=== PATIENT | male | born 1955 | race Caucasian/White ===

== ENCOUNTER 2025-06-08 07:28 | Outpatient (OUT) | payer MEDICARE, OTHER, SELFPAY ==
--- OUTSIDE RECORDS SUMMARY | 2025-06-06 19:56 | XMS_ITS | Continuity of Care Document ---
Author Organization [facility] Address [address] [place] [address] Phone Care Team Providers Care Bar Supervisor Name Role Phone Marco Bello MD Primary Care Provider Rayshawn Milton II, MD Attending Provider [phone] Care Teams Patient Care Team Team Status: Active Member Role/Relationship Status Dates Marco Bello MD Primary Care Provider Active Patient Care Team Team Status: Inactive Member Role/Relationship Status Dates Marco Bello MD Primary Care Provider Active Start: June 06, 2025 End: June 06, 2025Robviet Milton II, MDAttending ProviderActiveStart: June 06, 2025 End: June 06, 2025 Allergies, Adverse Reactions, Alerts Allergen Type Severity Reaction Last Updated Verified Status No Known Allergies Allergy Unknown May 06, 2024 8:48amYesActive Social History Smoking Status Status Start Date End Date Date of Observa tion Never smoked tobacco (finding) November 08, 2023 9:50am Observation Status Observation Response Date of Response Legal Sex Male (finding) Sex Assigned At BirthMaleDecember 1954 Family History Relationship Condition Age at Onset Recorded Date/T mary father Unknown HydrocephalusUnknownFamily history of myocardial infarctionUnknownmotherDeceased UnknownDementiaUnknown Problems Active Problems Problem Diagnosis/Recorded Date Onset Date Stat us Other buttermilk drier operator (current) drug therapy September 15, 2023 12:02pm Unknown Active Age-related osteoporosis wit hout current pathological fracture September 15, 2023 11:59am Unknown Ac tive Bilateral primary osteoarthritis of hip September 15, 2023 11:58am Unknown Active Cough May 06, 2024 9:11am Unknown Ac tive S/P total left hip arthroplasty November 23, 2023 3:36p m Unknown Active Arthritis of left hip September 15, 2023 7:54am Unkno wn Active Arthritis of right hip September 15, 2023 7:57am Unkn own Active Aftercare following hip join t replacement surgery November 23, 2023 3:36pm Unknown Active Strep throat May 06, 2024 9:11am Unknown Ac tive Hypertension May 06, 2024 8:47am Unknown Ac tive Medications Medication Status Dose Units Route Directions Qty Days Refills S tart Date Stop Date End Date Reason(s) Instructions Adherence Amoxicillin 500 mg tablet Discontinued 2000 MG PO once 4 1 3 June 05, 2024 12:00am December 25, 2024 7:05am1 hour prior to procedureAmoxicillin 500 mg tablet Lodcoxavevap3868DVLEsrvd305Xpqo 2024 7:05amJune 2024 7:42am1 hour prior to procedureAmoxicillin 500 mg edgetkPnijjs1681DVAFzaty829Tixd 2024 7:41am1 hour prior to procedureUnknownAcetaminophen (8 Hour Pain Reliever) 650 mg tablet extended lfxoinxYdtyervqtoun349ZRWPLitbp 8 hours as needed for pain October 25, 2023 11:00pmApril 2023 1:25pmMethylprednisolone (Medrol (Lio)) 4 mg tablets,dose jxmqAfktciowppfa3MPZNnu jihejgtv92Xcrdd 2023 11:00pmMay 2023 8:89goVcfjhjsdjggboqe-Eaomaiusu-Gl (Bromfed Dm) 2-30-10 mg/5 mL syrup Kzllly45HDBXLLVFH 4-6 HOURS as needed for cold obzdtbyt0263Kzwkfhu 2023 11:00pmUnknownAmoxicillin 875 mg zjtzvrVuesvo014WEVUUbzpb jniqp87468Fwpfhay 2023 11:00pmUnknownBenazepril-Hydrochlorothiazide 20-12.5 mg tabletActive1 TABPOTwice dailyFebruary 2023 12:00amUnknownCelecoxib 200 mg capsule DiscontinuedMGPODailyFebruary 2023 12:00amApril 2023 8:38amMelatonin 5 mg qufmdbaOfldpc3FCYSCwwaopz as needed for sleepFebruary 2023 12:00am UnknownErgocalciferol (Vitamin D2) 1,250 mcg (50,000 unit) capsuleDiscontinued 9637RUARDH9K2284Iscqhhff 2023 12:00amMay 2023 12:17pmSennosides- Docusate Sodium (Senokot-S) 8.6-50 mg jfvdgqOcpftuwrumoq2BDGHLgartj76022Sfzvi 2023 11:00pmMay 2023 10:48amDO NOT RECONCILE UNTIL DOS: 11/08/2023 MED TO BEDPolyethylene Glycol 3350 (Miralax) 17 gram/dose schxjoIwkcpokdhric50RUGU lmopk199Hlfuq 2023 11:00pmMay 2023 12:17pm1 packed mixed with 8 ounces of fluid. DO NOT RECONCILE UNTIL DOS: 11/08/2023 MED TO BEDCelecoxib 200 mg hwienwyZxvpvsucmhrj836TKOYJwpxk zmedv81509Junma 2023 11:00pmApril 2023 2:46pmDO NOT RECONCILE UNTIL DOS: 11/08/2023 MED TO BEDCefadroxil 500 mg capsule Hqwwpyzjopqa598XXAOF82Y9563Vipby 2023 11:00pmMay 2023 12:17pmDO NOT RECONCILE UNTIL DOS: 11/08/2023 MED TO BEDAcetaminophen 500 mg tabletDiscontinued 1856DJHJQ2D418611Nymlc 2023 11:00pmOctober 2023 8:48amDO NOT RECONCILE UNTIL DOS: 11/08/2023 MED TO BEDTramadol 50 mg wnknopOzidzonaixgw45EEKM Q6H as needed for Dlwu94902Khuak 2023 11:00pmMay 2023 10:48amPrimary osteoarthritis of both hips Bilateral primary osteoarthritis of hipDO NOT RECONCILE UNTIL DOS: 11/08/2023 MED TO BEDOxycodone 5 mg uqjzveSbwedetefses0PYRXM9W as needed for Iyvj2137Uowsl 2023Ma2023 10:48amPrimary osteoarthritis of both hips Bilateral primary osteoarthritis of hipDO NOT RECONCILE UNTIL DOS: 11/08/2023 MED TO BEDOndansetron Hcl 4 mg enmdvbWtujxzogbjtf9AFXZM9F as needed for Mmxebq13 October 26, 2023 11:00pmMay 2023 12:17pmDO NOT RECONCILE UNTIL DOS: 11/08/2023 MED TO BEDPantoprazole (Protonix) 20 mg tablet,delayed release (DR/EC) Qbqmattaxrma31BHEIxdmit94429Szhrz 2023 11:00pmMay 2023 12:17pmDO NOT RECONCILE UNTIL DOS: 11/08/2023 MED TO BEDAspirin 81 mg tablet,delayed release (DR/EC)Jdglmjnvuher13KZLFYuprp ptrga71427Yziaj 2023 11:00pmMay 2023 10:48amDO NOT RECONCILE UNTIL DOS: 11/08/2023 MED TO BEDPrednisone 10 mg tablet Iiczdtluwmom35OOFDjxpwa27215Rspym 2023 11:00pmMay 2023 12:17pmDO NOT RECONCILE UNTIL DOS: 11/08/2023. MED TO BEDAmoxicillin 500 mg tabletDiscontinued 2847VPNTfnfy345Tkt 2023 11:00pmOctober 2023 8:48am1 hour prior to procedure Immunizations Immunization Event Date Not Given Reason Dose Number Stamping Machine Operator Lot Number Reason(s) Given Vaccine Information Statement (VIS) Detail Administration Location COVID-19 mRNA-1273 (Moderna) November 07, 2020 COVID-19 mRNA-1273 (Moderna)December 10, 2020 Medical Equipment Device Date Implanted Device Details Acetabular shell November 08, 2023 RISHI: [id number] Issuing Agency: [facility] Device Id: [id number] Expiration Date: 2032-12-22 Lot Number: [id number] femoral head prosthesisApril 2023UDI: [id number] Issuing Agency: [facility] Device Id: [id number] Expiration Date: 2033-06-29 Lot Number: [id number] hip femur prosthesis, modularApril 2023UDI: [id number] Issuing Agency: [facility] Device Id: [id number] Expiration Date: 2027-10-28 Lot Number: [id number]-[id number] polyethylene acetabular linerApril 2023 RISHI: [id number] Issuing Agency: [facility] Device Id: [id number] Expiration Date: 2028-07-03 Lot Number: [id number] Advance Directives Advance Directive Response Recorded Date/ Time Advance Directives No May 10, 2021 8:06am Insurance Providers Guarantor Hao Louis , Sr Address [address] [facility] [address]Xgmsjor Info.Home Phone: Payer Group Member ID Coverage Type Subscriber Relationship to Subscriber Effective Date Expiration Date Medicare [id number] J Lawrence , Sr Id: [id number] [facility] [address] Home Phone: SelfUnited Iraqi Id: Plan [id number] J Lawrence , Sr Id: [id number] [facility] [address] Home Phone: Self Encounters Encounter Location(s) Arrival/Admit Date Discharge/Departure Date Discharge/Departure Disposition Provider(s) Departed Clinical -Gildardo Jolley June 06, 2025 11:11am June 06, 2025 11:12am Discharged to home care or self care (routine discharge) Davis Allen MD
--- NOTE | 2025-06-08 | XR_ITS ---
The [address] [address] Patient Name: AMINA ROJO MRN: [id number] date: 1955 Sex: M Assigned Patient Location: [facility] Current Patient Location: [facility] Accession/Order Number: [id number] Exam Date: 06/08/2025 09:35 Report Date: 06/08/2025 10:35 At the request of: EUSEBIO FIGUEREDO MD Procedure: XR shoulder LT min 2V LEFT SHOULDER - 4 views CLINICAL HISTORY: M25.512 left shoulder pain and decreased range of motion. No injury. COMPARISON: None AP, Y, axillary and Grashey views were obtained. There is osteopenia. There is no evidence of fracture or dislocation. There is minor hypertrophy at the inferior glenohumeral and acromioclavicular joints. There are no significant soft tissue abnormalities. XR/XR shoulder LT min 2V IMPRESSION: OSTEOPENIA AND MINOR DEGENERATIVE CHANGE. NO ACUTE BONY FINDINGS. Impression dictated by: Ileana Humphreys M.D. 06/08/2025 10:35 AM Dictation Location: [place] [address] Electronically authenticated by: [id number] Y Date: 06/08/2025 10:35
--- OUTSIDE RECORDS SUMMARY | 2025-06-08 07:31 | XMS_ITS | Clinical Summary ---
Author Organization [facility] Address [address] [place] [address] Care Team Providers Care Formula Bottler Name Role Phone Marco Bello MD Primary Care Provider [phone] Allergies No known active allergies Medications MedicationSigDispense QuantityRefillsLast FilledStart DateEnd DateStatus DIOVAN HCT 80-12.5 mg per tablet Take 1 tablet by mouth once daily.05/03/2015ctive aspirin, enteric coated (ASPIRIN, ENTERIC COATED) 81 mg EC tablet Take 81 mg by mouth once daily.Active meloxicam (MOBIC) 15 mg tablet Take 1 tablet by mouth once daily. 30 tablet 04/16/2017Active Benazepril-hydroCHLOROthiazide 20-12.5 mg per tablet Take 2 tablets by mouth once daily.Active Active Problems ProblemNoted DateDiagnosed DateColon polyp05/22/2015Family history of colonic oeqwqa4605/22/2015Diverticulosis of large intestine without baqqafwiji92/28/2015 Encounters DateTypeDepartmentCare EygiCpmxwguijum84/16/2025Results Follow-Up Ambulatory Surgery [address] [place] [address] Dirk Barajas MD 05/09/2025 9:17 AM EDTAnesthesia Event Ambulatory Surgery [address] [place] [address] Silvina Odonnell APRN.ANTENNA MACHINE OPERATOR Kathleen Marin APRN.ANTENNA MACHINE OPERATOR 05/09/2025 8:24 AM EDT - 05/09/2025 11:59 PM EDTHospital Encounter Ambulatory Surgery [address] [place] [address] Dirk Barajas MD Mace, Hannah M, RN McLaughlin, Vivian, APRN.ANTENNA MACHINE OPERATOR History of colonic polyps [Z86.0100] Discharge Disposition: Home05/09/20250703Wsxned80/14/2025GI Preprocedure Call Ambulatory Surgery [address] [place] [address] Dirk Barajas MD 03/13/2025Telephone Gastroenterology [address] [place] [address] Dirk Barajas MD Orders; Appointmentfrom Last 3 Months Social History Tobacco UseTypesPacks/DayYears UsedDateSmoking Tobacco: NeverAlcohol UseStandard Drinks/WeekCommentsYes3 (1 standard drink = 0.6 oz pure alcohol)AUDIT-CAnswer Date RecordedQ1: How often do you have a drink containing alcohol?2-3 times a week05/15/2020Q2: How many drinks containing alcohol do you have on a typical day when you are drinking?3 or Frequency of Binge DrinkingNot on file 05/15/2020Area Deprivation IndexAnswerDate RecordedNational Score (1-100), lower number is lower riskNot on file06/30/2020State Score (1-10), lower number is lower riskNot on file06/30/2020Data from: https://www.neighborhoodatlas.medicine.[facility].edu/. Last address used for calculationNot on file06/30/2020Sex and Gender InformationValueDate RecordedSex Assigned at BirthNot on fileLegal NjzYaze64/02/2012 8:39 AM ESTGender Identity Not on fileSexual OrientationNot on file Last Filed Vital Signs Vital SignReadingTime TakenCommentsBlood Iepazzow916/7710 9:55 AM EDT Lxcta158805/09/2025 9:55 AM HCRHbuqdvyltzd47.8 ??C (98.2 ??F)05/15/2020 8:47 AM EDTRespiratory Smfm3522 9:55 AM EDTOxygen Nqxudunpgu70%05/09/2025 9:55 AM EDTInhaled Oxygen Concentration--Hhhwbj15.7 kg (200 lb)05/09/2025 8:52 AM EDT Dysfws131.9 cm (6')05/09/2025 8:52 AM EDTBody Mass Index27.121 8:52 AM EDT Plan of Treatment Health MaintenanceDue DateLast DoneCommentsAnxiety Ufrajdjra45/07/1973Depression Fqbfwkdla79/07/1973Hepatitis C Nigltzoeu36/07/1973DTaP,Tdap,Td Vaccine (1 - Tdap)1974CT Hixbvdxjvwds24/07/2000Cologuard (FIT-DNA)2000Fecal Occult Blood07/01/20007247Wxdlverwrmchi79/07/2000Shingrix Vaccine (2 of 3)06/25/2014 04/30/2014Medicare Annual Wellness Visit06/25/2020Advance Directive Discussion 5Covid-19 Vaccine ( - season)2025Influenza Vaccine (#1) 502/, 05/20/2022, 1Diabetes Ghifzkjoj77/22/2028 03/16/2025, 03/16/2025, 05/03/2024, Additional history existsLipid Screening , 05/03/2024, 05/26/2023, Additional history exists Svcqtnmdxdq49, 05/15/2020, 05/22/2015, Additional history existsColorectal Cancer Gmupwuztm70/15/2030RSV Vaccine (1 - 1-dose 75+ series) 2030Pneumococcal Vaccine: 50+Ghksgfbmx52/28/2024 Procedures Procedure NamePriorityDate/TimeAssociated DiagnosisCommentsSURGICAL PATHOLOGY Zbwccyu2705/09/2025 9:27 AM EDT History of colonic polyps Family history of colonic polyps COLONOSCOPY (THERAPEUTIC)Fgwmymg0605/09/2025 9:11 AM EDT PT ED DIGESTIVE GQKVJIQ4004/09/2025 PT ED PATIENT TGKTFGMYHGN69/ PT ED DIGESTIVE CZMYRZZ2104/09/2025 from Last 3 Months Results * SURGICAL PATHOLOGY (05/09/2025 9:27 AM EDT)ComponentValueRef RangeTest Method Analysis TimePerformed AtPathologist SignatureCase ReportSurgical Pathology Report ? Case: [id number] ? Authorizing Provider: ??Dirk Barajas MD ? Collected: ? 05/09/2025 09:27 AM? Ordering Location: ? Ambulatory Surgery ? Received: ?05/09/2025 07:19PM ? Pathologist: ? Nixon Burks MD ? Specimens: ?? A) - Colon, Transverse, Polyp ? B) - Rectum, Polyp ? 05/10/2025 11:01 AM [facility]. Transverse colon, polypectomy: - Fragments of tubular adenoma. B. Rectum, polypectomy: - Hyperplastic polyp.05/10/2025 11:01 AM [facility] at 1101 EDTGross DescriptionA. Colon, Transverse, Polyp Received in formalin are multiple pieces of clark, soft tissue aggregating to 1.4 x 0.2 x 0.2 cm. Totally submitted in one cassette. B. Rectum, Polyp Received in formalin is one piece of clark, soft tissue measuring 0.3 x 0.3 x 0.1 cm. Totally submitted in one cassette. SS May 09, 2025 10:20 PM Gross examination performed at [facility], [address] [place] [address] 05/10/2025 11:[address] [facility] LABClinical HistoryAssociated Diagnoses: Z86.0100 - History of colonic polyps Z83.719 - Family history of colonic polyps 05/10/2025 11:[address] [facility] LABPerforming LabDiagnostic interpretation performed at: [facility], [address] [place] [address] CLIA# [id number] Chemical Analyst: Zayda Wheeler MD 05/10/2025 11:[address] [facility] LABDisclaimerLaboratory Developed Test (LDT) Disclaimer: Performance characteristics of immunohistochemical, immunofluorescent, and chromogenic in-situ hybridization tests have been determined by the performing laboratory within the [facility] Department of Pathology and Laboratory Medicine ([facility], [facility], [facility], [facility], [facility], [facility], or [facility]) in a manner consistent with CLIA requirements. One or more of these tests may not have been cleared or approved by the FDA. The [facility] Department of Pathology and Laboratory Medicineis regulated under CLIA as qualified to perform high-complexity testing. These tests are used for clinical purposes. These should not be regarded as investigational or for research. Positive and negative controls stain appropriately.05/10/2025 11:01 AM EDT [facility] LABSpecimen (Source)Anatomical Location / Laterality Collection Method / VolumeCollection TimeReceived TimeTissuePOLYP OF TRANSVERSE COLON / Spbgtve6405/09/2025 9:27 AM EDT1 7:19 PM EDTTissue specimen (specimen)RECTAL POLYP / Rxxsmli9205/09/2025 9:36 AM EDT1 7:19 PM EDT Narrative Authorizing ProviderResult TypeResult StatusDirk Barajas MDSURGICAL PATHOLOGY Final ResultPerforming OrganizationAddressCity/State/ZIP CodePhone Number [facility] [address] [place] [address], * COLONOSCOPY (THERAPEUTIC) (05/09/2025 9:11 AM EDT)Anatomical RegionLaterality ModalityOtherSpecimen (Source)Anatomical Location / LateralityCollection Method / VolumeCollection TimeReceived Time05/09/2025 9:11 AM EDT Narrative 05/09/2025 9:43 AM EDT [facility] Gastroenterology Gastrointestinal Endoscopy Patient Name: Amina Rojo Procedure Date: 05/09/2025 9:11 AM Date of : 1955 Admit Type: Outpatient Age: 69 Room: [place] [address] Gender: Male Note Status: Finalized Attending MD: Dirk Barajas MD, [id number] Procedure: ? Colonoscopy Indications: ? Screening for colorectal malignant neoplasm Providers: ? Dirk Braajas MD Patient Profile: ? This is a 69 year old male. Refer to note in ? patient chart for documentation of history and ? physical. Last Colonoscopy: 10 years ago. Referring Physician: ?? Dirk Barajas MD (Referring MD) Medicines: ? Monitored Anesthesia Care Complications: ? No immediate complications. Requesting Provider: ?? Procedure: ? Pre-Anesthesia Assessment: ? - Prior to the procedure, a History and Physical ? was performed, and patient medications and ? allergies were reviewed. The patient is competent. ? The risks and benefits of the procedure and the ? sedation options and risks were discussed with the ? patient. All questions were answered and informed ? consent was obtained. Patient identification and ? proposed procedure were verified by the physician, ? the nurse and the lead press operator in the procedure ? room. Mental Status Examination: alert and ? oriented. Airway Examination: normal oropharyngeal ? airway and neck mobility. Respiratory Examination: ? clear to auscultation. CV Examination: normal. ? Prophylactic Antibiotics: The patient does not ? require prophylactic antibiotics. Prior ? Anticoagulants: The patient has taken no ? anticoagulant or antiplatelet agents. ASA Grade ? Assessment: II - A patient with mild systemic ? disease. After reviewing the risks and benefits, ? the patient was deemed in satisfactory condition to ? undergo the procedure. The anesthesia plan was to ? use monitored anesthesia care (MAC). Immediately ? prior to administration of medications, the patient ? was re-assessed for adequacy to receive sedatives. ? The heart rate, respiratory rate, oxygen ? saturations, blood pressure, adequacy of pulmonary ? ventilation, and response to care were monitored ? throughout the procedure. The physical status of ? the patient was re-assessed after the procedure. ? After I obtained informed consent, the scope was ? passed under direct vision. Throughout the ? procedure, the patient's blood pressure, pulse, and ? oxygen saturations were monitored continuously. The ? Colonoscope was introduced through the anus and ? advanced to the terminal ileum, with identification ? of the appendiceal orifice and IC valve. I was ? present and participated during the entire ? procedure, including non-ohara portions, and during ? the administration and monitoring of Moderate ? Sedation. The colonoscopy was performed without ? difficulty. The patient tolerated the procedure ? well. The quality of the bowel preparation was ? good. The terminal ileum, ileocecal valve, ? appendiceal orifice, and rectum were photographed. Scope Withdrawal Time: 0 hours 8 minutes 2 seconds Moderate Sedation: ? MAC anesthesia was administered by the anesthesia ? team. Findings: ? The perianal and digital rectal examinations were normal. Pertinent ? negatives include normal sphincter tone. ? Non-bleeding internal hemorrhoids were found during retroflexion. The ? hemorrhoids were moderate, medium-sized and Grade I (internal ? hemorrhoids that do not prolapse). ? A 2 mm polyp was found in the rectum. The polyp was sessile. The ? polyp was removed with a cold biopsy forceps. Resection and retrieval ? were complete. ? Multiple medium-mouthed and small-mouthed diverticula were found in ? the sigmoid colon. There was no evidence of diverticular bleeding. ? A 12 mm polyp was found in the transverse colon. The polyp was ? sessile. The polyp was removed with a cold snare. Resection and ? retrieval were complete. ? The exam was otherwise normal throughout the examined colon. ? There is no endoscopic evidence of bleeding, erythema, inflammation, ? mass, stenosis, stricture or ulcerations in the entire colon. ? The terminal ileum appeared normal. Impression: ?- Non-bleeding internal hemorrhoids. ? - One 2 mm polyp in the rectum, removed with a cold ? biopsy forceps. Resected and retrieved. ? - Mild diverticulosis in the sigmoid colon. There ? was no evidence of diverticular bleeding. ? - One 12 mm polyp in the transverse colon, removed ? with a cold snare. Resected and retrieved. ? - The examined portion of the ileum was normal. Recommendation: ?- Patient has a contact number available for ? emergencies. The signs and symptoms of potential ? delayed complications were discussed with the ? patient. Return to normal activities tomorrow. ? Written discharge instructions were provided to the ? patient. ? - Resume previous diet. ? - Continue present medications. ? - Await pathology results. ? - Repeat colonoscopy in 5 years for surveillance. ? - Return to referring physician PRN. ? - Use Citrucel one tablespoon PO daily indefinitely. ? - Discharge patient to home (ambulatory). Procedure Code(s): ? --- Professional --- ? 73595, Colonoscopy, flexible; with removal of ? tumor(s), polyp(s), or other lesion(s) by snare ? technique ? 69330, 59, Colonoscopy, flexible; with biopsy, ? single or multiple Diagnosis Code(s): ? --- Professional --- ? Z12.11, Encounter for screening for malignant ? neoplasm of colon ? K64.0, First degree hemorrhoids ? D12.8, Benign neoplasm of rectum ? D12.3, Benign neoplasm of transverse colon (hepatic ? flexure or splenic flexure) ? K57.30, Diverticulosis of large intestine without ? perforation or abscess without bleeding CPT copyright 2020 [employer]. All rights reserved. The codes documented in this report are preliminary and upon armored truck driver review may be revised to meet current compliance requirements. Scope In: 9:21:30 AM Scope Out: 9:37:05 AM MD Dirk Melvin MD 05/09/2025 9:40:06 AM This report has been signed electronically by Dirk Barajas MD Number of Addenda: 0 Note Initiated On: 05/09/2025 9:11 AM Estimated Blood Loss: ? Estimated blood loss: none. Authorizing ProviderResult TypeResult Anne Barajas MDDIGESTIVE DISEASE Final Result * PT ED PATIENT INFORMATION (04/09/2025)Specimen (Source)Anatomical Location / LateralityCollection Method / VolumeCollection TimeReceived Time04/09/2025 Narrative [facility] - 05/10/2025 Provider SUNITA your patient AMINA ROJO has not started their Osiel program, time has . Osiel program: PATIENT SAFETY INSTRUCTIONS FOR HEALTHCARE SETTINGS Authorizing ProviderResult TypeResult Anne Barajas MDEMMIFinal Result Performing OrganizationAddressCity/State/ZIP CodePhone Number [facility] * PT ED DIGESTIVE DISEASE (04/09/2025) Only the most recent of2 resultswithin the time period is included. Specimen (Source)Anatomical Location / LateralityCollection Method / Volume Collection TimeReceived Time04/09/2025 Narrative [facility] - 05/10/2025 Provider SUNITA your patient AMINA ROJO has not started their Osiel program, time has . Osiel program: COLONOSCOPY: WHY GET ONE? Authorizing ProviderResult TypeResult StatusEdalbertina Barajas MDEMMIFinal Result Performing OrganizationAddressCity/State/ZIP CodePhone Number [facility] from Last 3 Months Insurance Care Teams Team MemberRelationshipSpecialtyStart [place] [address] [place] [phone] PCP - GeneralFamily Powaqiep15/26/15
--- OUTSIDE RECORDS SUMMARY | 2025-06-08 07:31 | XMS_ITS | Encounter Summary ---
Author Organization [facility] Address [address] [place] [address] Phone Care Team Providers Care Shot Hole Driller Name Role Phone Marco Bello MD Primary Care Provider Marco Bello MD Unavailable [phone] Encounter Details DateTypeDepartmentCare Team (Latest Contact Info)Uqgiareyxtf02/04/2025Patient Risk Score [facility] [address] [facility] [address] [place] [address] Social History Tobacco UseTypesPacks/DayYears UsedDateSmoking Tobacco: NeverSmokeless Tobacco: NeverAlcohol UseStandard Drinks/WeekCommentsNot Currently1 (1 standard drink = 0.6 oz pure alcohol)PHQ-2AnswerDate RecordedPatient Health Questionnaire-2 Score Sex and Gender InformationValueDate RecordedSex Assigned at BirthNot on fileLegal MorNvdm91/26/2022 8:39 PM ESTGender IdentityNot on fileSexual OrientationNot on filedocumented as of this encounter Plan of Treatment DateTypeDepartmentCare Team (Latest Contact Info)Hrzsnoaombz13/06/2026 10:15 AM EDTOffice Visit [facility] [address] [place] [phone] [place] [address] [place], [place] [phone] documented as of this encounter Visit Diagnoses Not on filedocumented in this encounter Additional Health Concerns AssessmentNoted TimeA fall risk assessment has been completed for the patient 01/25/2025 9:21 AM EDTdocumented as of this encounter Care Teams Team MemberRelationshipSpecialtyStart [place] [address] [place] [address] PCP - [facility]04/08/16 [place] [address] [place] [address] PCP - [facility] Attributed Provider10/25/23documented as of this encounter
--- OUTSIDE RECORDS SUMMARY | 2025-06-08 07:31 | XMS_ITS | Patient Health Record ---
Author Organization [facility] Urgent Care - [facility] Address [address] [place] [address] Care Team Providers Care Gear Machinist Name Role Phone Douglas Richardson [phone] Reason For Referral No Information Medications Medication SIG (Take, Route, Frequency, Duration) Notes Start Date End Date Status valsartan Active Plan Of Treatment No Information Insurance Providers Payer Name Payer Address Payer Phone Subscriber Number Group Number Insured Name Patient Relationship to Insured Coverage Start Date Coverage End Date [employer] [address] [place] [address] [id number] Hao Louis Self - patient is the insured Medications Administered Medication Instructions Date of Administration Dosage Notes Solumedrol 125 mg(Methylprednisolone Sod ium) 08/11/2019125 mgVerified by [facility] (General) History Medical History History ICD Code High Blood Pressure
--- OUTSIDE RECORDS SUMMARY | 2025-06-08 07:31 | XMS_ITS | Clinical Summary ---
Author Organization [facility] Address [address] [place] [address] Phone Care Team Providers Care Battery Container Tester Name Role Phone Marco Bello MD Primary Care Provider [phone] Marco Bello MD Unavailable Allergies Active AllergyReactionsCriticalityNoted DateComments Valsartan-QozuvugtiopwsxanejuOcbhtdq64/22/2024 Medications MedicationSigDispense QuantityRefillsLast FilledStart DateEnd DateStatus cyanocobalamin (Vitamin B-12) 1,000 mcg tablet Take 1 tablet (1,000 mcg) by mouth once daily.Active melatonin 5 mg capsule 4Active acetaminophen (Tylenol) 500 mg tablet Q8H4Active albuterol (Proventil HFA) 90 mcg/actuation inhaler Indications:Upper respiratory tract infection, unspecified typeInhale 2 puffs every 4 hours if needed for wheezing or shortness of breath. 18 g 4Active amoxicillin (Amoxil) 500 mg tablet TAKE 4 TABLETS BY MOUTH 1 HOUR BEFORE PROCEDURE FOR 1 DAY5Active cephalexin (Keflex) 500 mg capsule TAKE FOUR CAPSULES BY MOUTH ONE HOUR BEFORE JTWXLAONWYD70/09/2025Active valACYclovir (Valtrex) 1 gram tablet 5Active benazepriL-hydrochlorothiazide (Lotensin HCT) 20-12.5 mg tablet Indications:Primary hypertensionTake 2 tablets by mouth once daily. 180 tablet 6Active amLODIPine (Norvasc) 2.5 mg tablet Indications:Primary hypertensionTake 1 tablet (2.5 mg) by mouth once daily. 90 tablet 5Active Active Problems ProblemNoted DateDiagnosed FhhfGdgp88/15/2024Overweight with body mass index (BMI) of 28 to 28.9 in adult4Age-related osteoporosis without current pathological ozgsmwez66/28/2024rthritis of left hip09/22/2023rthritis of right hip09/22/2023ilateral primary osteoarthritis of hip09/22/2023reop examination 4Routine general medical examination at health care /28/2024 Assessment & Plan (01/25/2025 10:40 AM EDT): Orders: 1 Year Follow Up In Primary Care - Wellness Exam; Future B12 myrsmerfgm52/20/2024Hip pain, left09/14/20238509Gbyycqycexsty25/20/2024 Assessment & Plan (01/25/2025 10:40 AM EDT): Orders: Hemoglobin A1C; Future Yupzrdvstrjn61/20/2024 Assessment & Plan (01/25/2025 10:40 AM EDT): Orders: Lipid Panel; Future Comprehensive Metabolic Panel; Future benazepriL-hydrochlorothiazide (Lotensin HCT) 20-12.5 mg tablet; Take 2 tablets by mouth once daily. amLODIPine (Norvasc) 2.5 mg tablet; Take 1 tablet (2.5 mg) by mouth once daily. Assessment & Plan (05/25/2024 12:29 PM EDT): Orders: benazepriL-hydrochlorothiazide (Lotensin HCT) 20-12.5 mg tablet; Take 2 tablets by mouth once daily. amLODIPine (Norvasc) 2.5 mg tablet; Take 1 tablet (2.5 mg) by mouth once daily. Prostate etjjmu1509/14/2023asal cell carcinoma of skin of nose06/03/2022quamous cell carcinoma of skin of other parts of face06/03/2022olon polyp05/22/2015 Diverticulosis of large intestine without xfrmjhhykz61/28/2015Family history of colonic mfvdqn3905/22/2015 Encounters DateTypeDepartmentCare NlfqFbwypdlthah46/04/2025Patient Risk Score [facility] [address] [place] [address] 04/28/2025Patient Risk Score [facility] [address] [place] [address] 03/28/2025Patient Risk Score [facility] [address] [place] [address] 03/22/2025Results Follow-Up [facility] [address] [place] [phone] Marco Bello MD Lipid Panel, Hemoglobin A1C, Comprehensive Metabolic Panel, Additional followed- up results: 3from Last 3 Months Immunizations ImmunizationAdministration DatesNext DueFlu vaccine, quadrivalent, high-dose, preservative free, age 65y+ (FLUZONE)09/22/2023,06/13/2021Flu vaccine, quadrivalent, recombinant, preservative free, adult (FLUBLOK)05/20/2022 Pneumococcal conjugate vaccine, 20-valent (PREVNAR 20)09/22/2023Zoster, live 04/30/2014 Family History Medical HistoryRelationNameCommentscoronary stent restenosis with uncertain causeFathermalignant neoplasm of prostateFathermyocardial infarctionFather DementiaMotherRelationNameStatusCommentsFatherMother Social History Tobacco UseTypesPacks/DayYears UsedDateSmoking Tobacco: NeverSmokeless Tobacco: Never Tobacco Cessation:Counseling Given: Not Answered Alcohol UseStandard Drinks/WeekCommentsNot Currently1 (1 standard drink = 0.6 oz pure alcohol)PHQ-2AnswerDate RecordedPatient Health Questionnaire-2 Score0 01/25/2025Sex and Gender InformationValueDate RecordedSex Assigned at BirthNot on fileLegal HgeRjah64/26/2022 8:39 PM ESTGender IdentityNot on fileSexual OrientationNot on file Last Filed Vital Signs Vital SignReadingTime TakenCommentsBlood Towvjmho215/7207 9:22 AM EDT Yrgxy237501/25/2025 9:22 AM AYVZwujpafpvej85.7 ??C (98 ??F)01/25/2025 9:22 AM EDT Respiratory Rate--Oxygen Luzbhstxrk53%11/06/2021 9:56 AM EDTInhaled Oxygen Concentration--Mtdfhi44.3 kg (210 lb 3.2 oz)01/25/2025 9:22 AM DPZAqzvro362.6 cm (5' 11.5 )01/25/2025 9:22 AM EDTBody Mass Index28.9101/25/2025 9:22 AM EDT Plan of Treatment DateTypeDepartmentCare Team (Latest Contact Info)Tbfpvdbejbn95/06/2026 10:15 AM EDTOffice Visit [facility] [address] [place] [phone] [place] [address] [place], [place] [phone] Health MaintenanceDue DateLast DoneCommentsCT Oysvkxqsqmwg1955FIT-DNA (Cologuard)1955FIT07/01/19557238Rlajkrhfbbkle1955Hepatitis C Screening 1973DTaP/Tdap/Td Vaccines (1 - Tdap)1977MMR Vaccines (1 of 1 - Standard series)05/28/2014Zoster Vaccines (2 of 3)Influenza Vaccine (#1)/, 09/22/2023, 05/20/2022, Additional history existsCOVID-19 Vaccine (3 - season)/, 11/07/2020 Medicare Annual Wellness Visit (AWV)/09/2024, 05/25/2024, 06/12/2022, Additional history existsDiabetes Mbufbmjmy27, 05/03/2024, 05/03/2024, Additional history existsLipid Panel03/16/2030 03/16/2025, 05/03/2024, 05/26/2023, Additional history existsRSV High Risk: (Elderly (60+) or Population) (1 - 1-dose 75+ series)2030 Fzhdprrdfzc12/15/693029, 05/09/2025, 05/15/2020, Additional history existsColorectal Cancer Gdujvcpat87/15/2035Pneumococcal VaccineCompleted 09/22/2023, 1955Welcome to Medicare HjazdDqahnwxnbart92/03/2025, 05/25/2024, 06/12/2022, Additional history existsIrritable Bowel Syndrome Tzwvfyunpqci43/15/2025, 05/15/2020, 05/22/2015HIB VaccinesAged OutNo longer eligible based on patient's age to complete this topicHPV VaccinesAged OutNo longer eligible based on patient's age to complete this topicHepatitis A VaccinesAged OutNo longer eligible based on patient's age to complete this topic Hepatitis B VaccinesAged OutNo longer eligible based on patient's age to complete this topicIPV VaccinesAged OutNo longer eligible based on patient's age to complete this topicMeningococcal VaccineAged OutNo longer eligible based on patient's age to complete this topicRotavirus VaccinesAged OutNo longer eligible based on patient's age to complete this topic Procedures Procedure NamePriorityDate/TimeAssociated DiagnosisCommentsPROSTATE SPECIFIC VHAPLOOMzosgvt21/22/2025 9:34 AM EDT VITAMIN D21Nckpxec94/22/2025 9:34 AM EDT Vitamin B12 deficiency VITAMIN D 25-HYDROXY,XCJBOKwikekg57/22/2025 9:34 AM EDT Vitamin D deficiency COMPREHENSIVE METABOLIC CSUEKQsrqcgl89/22/2025 9:34 AM EDT Primary hypertension HEMOGLOBIN Q6EAtncpjg53/22/2025 9:34 AM EDT Hyperglycemia LIPID VSGWNTihljyu12/22/2025 9:34 AM EDT Primary hypertension ZVEVKXXBAIU18/28/2015 from Last 3 Months or Most Recently Relevant to Health Maintenance Results * Vitamin D 25-Hydroxy,Total (for eval of Vitamin D levels) (03/16/2025 9:34 AM EDT)ComponentValueRef RangeTest MethodAnalysis TimePerformed AtPathologist SignatureVITAMIN D,25-OH,TOTAL,JT8486 - 100 ng/mLiChange [facility] HospitalComment: Vitamin D Status ? 25-OH Vitamin D: Deficiency: <20 ng/mL Insufficiency: ? 20 - 29 ng/mL Optimal: > or = 30 ng/mL For 25-OH Vitamin D testing on patients on D2-supplementation and patients for whom quantitation of D2 and D3 fractions is required, the QuestAssureD(TM) 25-OH VIT D, (D2,D3), LC/MS/MS is recommended: order code 70037 (patients >2yrs). See Note 1 Note 1 For additional information, please refer to http://education.MyPrintCloud/faq/UPS096 (This link is being provided for informational/ educational purposes only.) Specimen (Source)Anatomical Location / LateralityCollection Method / Volume Collection TimeReceived TimeBloodVenous blood specimen / Uwirkns0603/16/2025 9:34 AM EDT03/16/2025 9:34 AM EDT Narrative [facility] - 03/17/2025 12:22 AM EDT FASTING:YES FASTING: YES Authorizing ProviderResult TypeResult StatusMarco Bello MDHERINGTON [facility] BLOOD ORDERABLESFinal ResultPerforming OrganizationAddressCity/State/ZIP CodePhone Number [facility] iChange [facility] [address] [place] [address] * Prostate Specific Antigen (03/16/2025 9:34 AM EDT)ComponentValueRef RangeTest MethodAnalysis TimePerformed AtPathologist SignaturePSA, TOTAL0.32< OR = 4.00 ng/mLiChange [facility] HospitalComment: The total PSA value from this assay system is standardized against the WHO standard. The test result will be approximately 20% lower when compared to the equimolar-standardized total PSA (Bernarda Starford). Comparison of serial PSA results should be interpreted with this fact in mind. This test was performed using the Siemens chemiluminescent method. Values obtained from different assay methods cannot be used interchangeably. PSA levels, regardless of value, should not be interpreted as absolute evidence of the presence or absence of disease. Specimen (Source)Anatomical Location / LateralityCollection Method / Volume Collection TimeReceived TimeBloodVenous blood specimen / Okjmgen5103/16/2025 9:34 AM EDT03/16/2025 9:34 AM EDT Narrative [facility] - 03/17/2025 12:22 AM EDT FASTING:YES FASTING: YES Authorizing ProviderResult TypeResult StatusMarco NÚÑEZ BLOOD ORDERABLESFinal ResultPerforming OrganizationAddressCity/State/ZIP CodePhone Number [facility] [address], [address] [place] [phone] * Hemoglobin A1C (03/16/2025 9:34 AM EDT)ComponentValueRef RangeTest Method Analysis TimePerformed AtPathologist SignatureHEMOGLOBIN A1c5.5<5.7 %[facility] GTI [facility] HospitalComment: For the purpose of screening for the presence of diabetes: <5.7% Consistent with the absence of diabetes 5.7-6.4% ?Consistent with increased risk for diabetes ?(prediabetes) > or =6.5% Consistent with diabetes This assay result is consistent with a decreased risk of diabetes. Currently, no consensus exists regarding use of hemoglobin A1c for diagnosis of diabetes in children. According to [place] Diabetes Association (ADA) guidelines, hemoglobin A1c <7.0% represents optimal control in non- diabetic patients. Different metrics may apply to specific patient populations. Standards of Medical Care in Diabetes(ADA). ?? eAG (mg/dL)111mg/dLEagleville HospitaleAG (mmol/L)6.2 mmol/LQuest [facility]istown HospitalSpecimen (Source)Anatomical Location / LateralityCollection Method / VolumeCollection TimeReceived TimeBlood Venous blood specimen / Kytnpkz1003/16/2025 9:34 AM EDT03/16/2025 9:34 AM EDT [facility] i-marker[facility] - 03/17/2025 12:22 AM EDT FASTING:YES FASTING: YES Authorizing ProviderResult TypeResult StatusMarco Bello MDHER[facility] BLOOD ORDERABLESFinal ResultPerforming OrganizationAddressCity/State/ZIP CodePhone Number [facility] [address] [place] [address], [address] [place] [phone] * Vitamin B12 (03/16/2025 9:34 AM EDT)ComponentValueRef RangeTest MethodAnalysis TimePerformed AtPathologist SignatureVITAMIN [id number] - 1,100 pg/mLEagleville HospitalSpecimen (Source)Anatomical Location / LateralityCollection Method / VolumeCollection TimeReceived TimeBloodVenous blood specimen / Yzuzfyc5203/16/2025 9:34 AM EDT03/16/2025 9:34 AM EDT [facility] - 03/17/2025 12:22 AM EDT FASTING:YES FASTING: YES Authorizing ProviderResult TypeResult StatusMarco Bello [facility] BLOOD ORDERABLESFinal ResultPerforming OrganizationAddressCity/State/ZIP CodePhone Number [address], [address] [place] [phone] * (ABNORMAL) Lipid Panel (03/16/2025 9:34 AM EDT)ComponentValueRef RangeTest MethodAnalysis TimePerformed AtPathologist SignatureCHOLESTEROL, QLRYH125<200 mg/dLEagleville HospitalHDL SVWGKPWZYVI10> OR = 40 mg/dLQuest [facility]Lewistown HospitalTRIGLYCERIDES65<150 mg/dL [facility]ville HospitalLDL-CHOLESTEROL100(H)mg/dL (calc) [facility] HospitalComment: Reference range: <100 Desirable range <100 mg/dL for primary prevention; <70 mg/dL for patients with CHD or diabetic patients with > or = 2 CHD risk factors. LDL-C is now calculated using the Timbo calculation, which is a validated novel method providing better accuracy than the Friedewald equation in the estimation of LDL-C. Alex SS et al. JD. 2013;310(19): 5141-9458 (http://education.QuestDiagnostics.com/faq/KRH272) CHOL/HDLC RATIO2.8<5.0 (calc)[facility] GTI [facility] HospitalNON HDL QPQSPOAISPS154<130 mg/dL (calc)[facility] Comment: For patients with diabetes plus 1 major ASCVD risk factor, treating to a non-HDL-C goal of <100 mg/dL (LDL-C of <70 mg/dL) is considered a therapeutic option. Specimen (Source)Anatomical Location / LateralityCollection Method / Volume Collection TimeReceived TimeBloodVenous blood specimen / Xdijvgz1403/16/2025 9:34 AM EDT03/16/2025 9:34 AM EDT Narrative [facility] - 03/17/2025 12:22 AM EDT FASTING:YES FASTING: YES Authorizing ProviderResult TypeResult StatusMarco Bello MDHER[facility] BLOOD ORDERABLESFinal ResultPerforming OrganizationAddressCity/State/ZIP CodePhone Number [facility] [address], [address] [place] [phone] * (ABNORMAL) Comprehensive Metabolic Panel (03/16/2025 9:34 AM EDT)Component ValueRef RangeTest MethodAnalysis TimePerformed AtPathologist SignatureGLUCOSE 120(H)65 - 99 mg/dLQuest Diagnostics [facility] HospitalComment: ? Fasting reference interval For someone without known diabetes, a glucose value between 100 and 125 mg/dL is consistent with prediabetes and should be confirmed with a follow-up test. UREA NITROGEN (BUN)137 - 25 mg/dLQuest Diagnostics [facility] CREATININE0.810.70 - 1.35 mg/dLQuest Diagnostics [facility] HospitalEGFR 95> OR = 60 mL/min/1.56n4Ttfxe Diagnostics [facility] Rehabilitation HospitalSODIUM141 135 - 146 mmol/LQuest Diagnostics [facility] HospitalPOTASSIUM4.13.5 - 5.3 mmol/LQuest Diagnostics [facility] HospitalCHLORIDE10198 - 110 mmol/L [facility] HospitalCARBON OTIIYYP9906 - 32 mmol/LQuest Diagnostics [facility] Rehabilitation HospitalELECTROLYTE ZWHSFLL03 - 17 mmol/L (calc) [facility] GTI [facility] HospitalCALCIUM9.38.6 - 10.3 mg/dLQuest Diagnostics [facility] HospitalPROTEIN, TOTAL6.76.1 - 8.1 g/dLQuest Diagnostics [facility] HospitalALBUMIN4.33.6 - 5.1 g/dLQuest Diagnostics [facility] HospitalBILIRUBIN, TOTAL0.60.2 - 1.2 mg/dLQuest Diagnostics [facility] HospitalALKALINE FJFGBHBEMEU1876 - 144 U/LQuest Diagnostics [facility] HospitalAST1510 - 35 U/LQuest Diagnostics [facility] HospitalALT189 - 46 U/LQuest Diagnostics [facility] HospitalSpecimen (Source)Anatomical Location / Laterality Collection Method / VolumeCollection TimeReceived TimeBloodVenous blood specimen / Dxisdil8503/16/2025 9:34 AM EDT03/16/2025 9:34 AM EDT Narrative [facility] - 03/17/2025 12:22 AM EDT FASTING:YES FASTING: YES Authorizing ProviderResult TypeResult StatusWalMcneill BLOOD ORDERABLESFinal ResultPerforming OrganizationAddressCity/State/[facility] CodePhone Number [facility] Diagnostics [facility] [address], [address] [place] [phone] from Last 3 Months Insurance Advance Directives For more information, please contact: [phone] (Available ) NameRelationshipHealthcare Agent RelationshipCommunicationMichealene Heriberto SpouseHealth Care Agent* Care Teams Team MemberRelationshipSpecialtyStart [place] [address] [place] [address] PCP - [facility]04/08/16 [place] [address] [place] [address] PCP - [facility] Attributed Provider10/25/23
== END 2025-06-08 07:29 | disposition home or self-care (01) ==
LOC: RAD 07:28
PROVIDERS: Visit Provider Orthopaedic Surgery
DX: M25.512 Pain in left shoulder (principal); M85.88 Other specified disorders of bone density and structure, other site
CPT/HCPCS: 73030